=== PATIENT | female | born 1955 | race Caucasian/White ===

== ENCOUNTER 2018-02-21 19:05 | Emergency (ER) | payer BC ==
--- NOTE | 2018-02-21 19:58 | ED ---
Bite Injury/Animal - HPI Summary HPI Summary: Patient complains of redness, swelling, pain to right hand after Bite at 3 AM this morning. Patient started clindamycin at noon today, states redness and pain is increasing. Denies fever, CP, SOB, N/V. No anti-coag. Patient states cat up-to-date on vaccinations. - History of Current Complaint Chief Complaint: EDAnimalBite Stated Complaint: ANIMAL BITE Time Seen by Provider: 02/21/18 19:15 Hx Obtained From: Patient Onset of Injury: Happened hours ago Type of Bite: Animal Has Animal Been Immunized?: Yes Severity Initially: Mild Severity Currently: Mild Pain Intensity: 2 Pain Scale Used: 0-10 Numeric Character: Puncture Associated Signs And Symptoms: Positive: Erythema, Swelling. Negative: Limited ROM - Allergies/Home Medications Allergies/Adverse Reactions: Allergies Allergy/AdvReac Type Severity Reaction Status Date / Time Penicillins Allergy Rash Verified 02/21/18 19:09 Home Medications: Home Medications Clindamycin Cap(NF) 150 mg PO TID 02/21/18 [History Confirmed 02/21/18] PMH/Surg Hx/FS Hx/Imm Hx Endocrine/Hematology History: Denies: Hx Anticoagulant Therapy History: Denies: Hx Dialysis Neurological History: Denies: Hx CVA - Cancer History Hx Chemotherapy: No Hx Radiation Therapy: No - Immunization History Date of Tetanus Vaccine: with in 5 years ([employer]) Infectious Disease History: No Infectious Disease History: Denies: Traveled Outside the [place] in Last 30 Days - Social History Alcohol Use: Occasionally Substance Use Type: Reports: None Smoking Status (MU): Never Smoked Tobacco Review of Systems Constitutional: Negative Eyes: Negative ENT: Negative Cardiovascular: Negative Respiratory: Negative Gastrointestinal: Negative Genitourinary: Negative Musculoskeletal: Negative Skin: Other Neurological: Negative Psychological: Normal All Other Systems Reviewed And Are Negative: Yes Physical Exam - Summary Physical Exam Summary: 3 areas of scabbing indicating broken skin on dorsal surface of right hand. Redness to back of right hand, with faint red lines progressing proximally on right wrist. No indication of bite wounds to volar surface or flexor surface of right hand or wrist or forearm. EMS intact distally. Mild swelling. Triage Information Reviewed: Yes Vital Signs On Initial Exam: Initial Vitals Temp Pulse Resp BP Pulse Ox 98.1 F 100 16 155/96 96 02/21/18 19:07 02/21/18 19:07 02/21/18 19:07 02/21/18 19:07 02/21/18 19:07 Vital Signs Reviewed: Yes Appearance: Positive: Well-Appearing Skin: Positive: Warm Head/Face: Positive: Normal Head/Face Inspection Eyes: Positive: Normal Neck: Positive: Supple Respiratory/Lung Sounds: Positive: Clear to Auscultation Cardiovascular: Positive: Normal Abdomen Description: Positive: Nontender Musculoskeletal: Positive: Normal Neurological: Positive: Normal Psychiatric: Positive: Normal AVPU Assessment: Alert - Leonides Coma Scale Best Eye Response: 4 - Spontaneous Best Motor Response: 6 - Obeys Commands Best Verbal Response: 5 - Oriented Coma Scale Total: 15 Diagnostics - Vital Signs Vital Signs Temp Pulse Resp BP Pulse Ox 02/21/18 19:07 98.1 F 100 16 155/96 96 - Laboratory Lab Statement: Any lab studies that have been ordered have been reviewed, and results considered in the medical decision making process. Bite Injury Course/Dx - Course Course Of Treatment: Patient complains of redness, swelling, pain to right hand after Bite at 3 AM this morning. Patient started clindamycin at noon today, states redness and pain is increasing. Denies fever, CP, SOB, N/V. No anti- coag. Patient states cat up-to-date on vaccinations. PE: 3 areas of scabbing indicating broken skin on dorsal surface of right hand. Redness to back of right hand, with faint red lines progressing proximally on right wrist. No indication of bite wounds to volar surface or flexor surface of right hand or wrist or forearm. EMS intact distally. Mild swelling. Patient reassured that antibiotics would address redness and swelling within a couple days. Advised patient to return if symptoms worsen passed day 3 of antibiotics.. - Diagnoses Provider Diagnosis: Cat bite of hand Discharge - Sign-Out/Discharge Documenting (check all that apply): Patient Departure - Discharge Plan Condition: Stable Disposition: HOME Patient Education Materials: Animal Bite (ED) Referrals: Issa Roberts MD [Primary Care Provider] - Additional Instructions: Keep taking antibiotics as directed. Return to the ED for any new or worsening symptoms - Billing Disposition and Condition Condition: STABLE Disposition: Home
[2018-02-21 20:19] VITALS: BP 127/83
== END 2018-02-21 20:17 | disposition home or self-care (01) ==
LOC: ED 19:05
DX: S61.451A Open bite of right hand, initial encounter (principal); W55.01XA Bitten by cat, initial encounter; Y92.9 Unspecified place or not applicable
CPT/HCPCS: 99281

== ENCOUNTER 2022-01-08 07:30 | Inpatient (IN) ==
[~2022-01-08 07:30] MED LIST: Buffered Lidocaine 1% SYRIN 1 ml INTRADERM ONE; Lactated Ringers 1000 ml BAG 1,000 ML IV SCH
[2022-01-08] MEDS ORDERED: Prochlorperazine 5 mg/ml 2 ml VIAL (10 mg) IV PRN (08:06)
[2022-01-08] MEDS ORDERED: HYDROmorphone 1 MG/1 ML SYRINGE IV PRN (08:06)
[2022-01-08] MEDS ORDERED: Naloxone 0.4 mg VIAL 0.4 mg/ml 1 ml VIAL IV PRN (08:06)
[2022-01-08] MEDS ORDERED: ceFAZolin 2 GM in NS PREMIX 2 GM/100 ML BAG IVPB ONE (09:12)
[2022-01-08] MEDS ORDERED: Midazolam 2 mg/2 ml VIAL 1 mg/ml 2 ml VIAL (2 mg) ONE (10:46)
[2022-01-08] MEDS ORDERED: fentaNYL 100 mcg/2 ml 50 MCG/ML VIAL ONE (11:44)
[2022-01-08] MEDS ORDERED: Phenylephrine IV 10 MG/ML 1 ml VIAL ONE (11:53)
[2022-01-08] MEDS ORDERED: Magnesium Hydroxide LIQ 30 ML UDC PO PRN (12:53)
[2022-01-08] MEDS ORDERED: Morphine 2 MG/ML SYRINGE IV PRN (12:53)
[2022-01-08] MEDS ORDERED: Ondansetron 4 mg VIAL 2 MG/ML 2 ml VIAL IV PRN (12:53)
[2022-01-08] MEDS ORDERED: Ondansetron ODT 4 mg TAB 4 MG TAB PO PRN (12:53)
[2022-01-08] MEDS ORDERED: Lactulose 30 ml UDC PO PRN (12:53)
[2022-01-08] MEDS ORDERED: Lactated Ringers 1000 ml BAG 1,000 ML IV SCH (13:00)
[2022-01-08] MEDS: Clindamycin 600 MG/D5W BAG 600 MG/50 ML BAG IV SCH (20:32)
[2022-01-08] MEDS: Magnesium Hydroxide LIQ 30 ML UDC PO SCH (20:33)
[2022-01-09] MEDS: Clindamycin 600 MG/D5W BAG 600 MG/50 ML BAG IV SCH ×2 (05:08→11:48)
[2022-01-09 07:32] LABS: Hematocrit 32 % (35-47); Hemoglobin 11.2 g/dL (12.0-16.0); Mean Platelet Volume 7.6 fL (7.4-10.4); Platelet Count 225 10^3/uL (150-450)
[2022-01-09 08:19] LABS: Potassium 3.8 mmol/L (3.5-5.0); eGFR CKD-EPI 54.3 (>60)
[2022-01-09] MEDS: Magnesium Hydroxide LIQ 30 ML UDC PO SCH (08:33)
[2022-01-09] MEDS ORDERED: Vitamin THERAPEUTIC TAB PO SCH (09:00)
[2022-01-09 11:35] VITALS: BP 94/62
== END 2022-01-09 13:45 | disposition home or self-care (01) | DRG 301 ==
LOC: AA 08:28 → SSU 15:45
PROVIDERS: ADMIT Orthopaedic Surgery Adult Reconstructive Orthopaedic Surgery; ATTEND Orthopaedic Surgery Adult Reconstructive Orthopaedic Surgery

== ENCOUNTER 2022-04-21 01:45 | Observation (INO) ==
[2022-04-21] MEDS ORDERED: Ondansetron 4 mg VIAL 2 MG/ML 2 ml VIAL IV ONE (04:51)
[2022-04-21] MEDS ORDERED: NS 0.9% 1000 ml BAG 1,000 ML IV ONE (04:51)
[2022-04-21 05:19] LABS: Hematocrit 40 % (35-47); Hemoglobin 13.3 g/dL (12.0-16.0); Mean Corpuscular HGB Conc 34 g/dL (31-36); Mean Corpuscular Hemoglobin 30 pg (27-31); Mean Corpuscular Volume 90 fL (80-97); Mean Platelet Volume 7.9 fL (7.4-10.4); Platelet Count 276 10^3/uL (150-450); Red Blood Count 4.39 10^6 /uL (3.70-4.87); Red Cell Distribution Width 14 % (10-15); White Blood Count 25.5 10^3/uL (3.5-10.8)
[2022-04-21 05:26] LABS: INR 1.14 (0.89-1.11)
[2022-04-21 05:29] LABS: Urine Appearance Cloudy; Urine Bilirubin Negative (Negative); Urine Blood 1+ (Negative); Urine Color Amber; Urine Glucose Negative (Negative); Urine Ketones 2+ (Negative); Urine Nitrite Negative (Negative); Urine Protein 2+(100 mg/dL) (Negative); Urine Specific Gravity 1.026 (1.002-1.030); Urine Urobilinogen Negative (Negative)
[2022-04-21 05:30] LABS: Urine Bacteria Absent (Absent); Urine Red Blood Cell 2+(6-10/hpf) (Absent); Urine Squamous Epithelial Cell Present (Absent); Urine White Blood Cell 1+(6-10/hpf) (Absent)
[2022-04-21 05:49] LABS: Albumin 4.1 g/dL (3.2-5.2); Albumin/Globulin Ratio 1.4 (1-3); C Reactive Protein 355.55 mg/L (<8.01); Calcium 9.3 mg/dL (8.6-10.3); Potassium 3.1 mmol/L (3.5-5.0); Total Bilirubin 1.2 mg/dL (0.2-1.0); Total Protein 7.1 g/dL (6.4-8.9); eGFR CKD-EPI 58.3 (>60)
[2022-04-21 05:52] LABS: ABS Basophils 0.1 10^3/ul (0-0.2); ABS Lymphocytes 0.6 10^3/ul (1.0-4.8); ABS Monocytes 1.6 10^3/ul (0-0.8); ABS Neutrophils 23.2 10^3/ul (1.5-7.7); Eosinophil % 0.1 %; Lymphocyte % 2.2 %
[2022-04-21] MEDS ORDERED: Iodixanol (CONTRAST) 320 MG/ML 100 ML SDV IV ONE (07:03)
[2022-04-21] MEDS ORDERED: Ciprofloxacin 400mg IVPREMIX 400 MG/200 ML BAG IVPB ONE (07:11)
[2022-04-21] MEDS ORDERED: metroNIDAZOLE IV 500 MG/100ML 500 MG/100 ML BAG IVPB ONE (07:13)
[2022-04-21] MEDS ORDERED: Morphine 4 MG/ML VIAL (1 ml) IV ONE (10:02)
[2022-04-21] MEDS ORDERED: Lactated Ringers 1000 ml BAG 1,000 ML IV ONE (14:14)
[2022-04-21] MEDS ORDERED: oxyCODONE/Acetamin 5/325 mg TAB PO PRN (14:26)
[2022-04-21] MEDS ORDERED: Ondansetron 4 mg VIAL 2 MG/ML 2 ml VIAL IV PRN ×2 (14:26→15:09)
[2022-04-21] MEDS ORDERED: HYDROmorphone 0.5 MG/0.5 ML SYRINGE IV SLOW PU PRN (14:26)
[2022-04-21] MEDS ORDERED: Clindamycin 900 MG/D5W BAG 900 MG/50 ML BAG IVPB ONE (14:39)
[2022-04-21] MEDS ORDERED: Succinylcholine 200 mg VIAL 20 mg/ml 10 ml VIAL (200 mg) ONE ×2 (14:43→14:44)
[2022-04-21] MEDS ORDERED: Propofol 10 MG/ML 20 ML BTL ONE (14:44)
[2022-04-21] MEDS ORDERED: Dexamethasone IV 4 MG/ML VIAL 1 ml VIAL ONE (14:44)
[2022-04-21] MEDS ORDERED: Ondansetron 4 mg VIAL 2 MG/ML 2 ml VIAL ONE (14:44)
[2022-04-21] MEDS ORDERED: fentaNYL 250 mcg/5 ml 50 MCG/ML 5 ml VIAL (250 MCG) ONE (14:47)
[2022-04-21] MEDS ORDERED: Midazolam 2 mg/2 ml VIAL 1 mg/ml 2 ml VIAL (2 mg) ONE (14:47)
[2022-04-21] MEDS ORDERED: Gentamicin ADULT 250 MG in NS 0.9% 100 ml BAG 100 ML IVPB ONE (15:00)
[2022-04-21] MEDS ORDERED: Bupivacaine 0.25% EPI 200,000 30 ML SDV ONE (15:01)
[2022-04-21] MEDS ORDERED: Sodium Citrate/Citric Acid LIQ 15 ML UDC PO ONE (15:09)
[2022-04-21] MEDS ORDERED: Metoclopramide 5 MG/ML VIAL (10 mg) IV PRN (15:09)
[2022-04-21] MEDS ORDERED: HYDROcodone/ACETAMIN 5/325 mg TAB PO PRN (15:09)
[2022-04-21] MEDS ORDERED: Naloxone 0.4 mg VIAL 0.4 mg/ml 1 ml VIAL IV PRN (15:09)
[2022-04-21] MEDS ORDERED: Buffered Lidocaine 1% SYRIN 1 ml INTRADERM ONE (15:09)
[2022-04-21] MEDS ORDERED: fentaNYL 100 mcg/2 ml 50 MCG/ML VIAL IV PRN (15:09)
[2022-04-21] MEDS ORDERED: Rocuronium 50 mg VIAL 10 mg/ml 5 ml VIAL (50 mg) ONE (15:43)
[2022-04-21] MEDS ORDERED: Phenylephrine 40 mcg/mL 10mL (400mcg) SYRINGE ONE (15:58)
[2022-04-21] MEDS: Lactated Ringers 1000 ml BAG 1,000 ML IV SCH ×2 (18:26→19:47)
[2022-04-21] MEDS ORDERED: Acetaminophen IV 1 GM/100ML 1,000 MG/100 ML BAG IV PRN (18:47)
[2022-04-21] MEDS: CEFEPIME 2 GM in Dextrose 50 mL IV SCH (22:15)
[2022-04-22] MEDS: metroNIDAZOLE IV 500 MG/100ML 100 ML IVPB SCH ×2 (00:18→08:50)
[2022-04-22] MEDS ORDERED: Pantoprazole VIAL 40 MG VIAL IV ONE (04:04)
[2022-04-22] MEDS: Lactated Ringers 1000 ml BAG 1,000 ML IV SCH (04:52)
[2022-04-22 06:27] LABS: ABS Lymphocytes 0.4 10^3/ul (1.0-4.8); ABS Monocytes 0.8 10^3/ul (0-0.8); Hematocrit 34 % (35-47); Hemoglobin 11.1 g/dL (12.0-16.0); Lymphocyte % 2.5 %; Mean Corpuscular HGB Conc 33 g/dL (31-36); Mean Corpuscular Hemoglobin 30 pg (27-31); Mean Corpuscular Volume 90 fL (80-97); Platelet Count 219 10^3/uL (150-450); Red Blood Count 3.74 10^6 /uL (3.70-4.87); Red Cell Distribution Width 13 % (10-15); White Blood Count 14.2 10^3/uL (3.5-10.8)
[2022-04-22 07:08] LABS: Albumin 2.9 g/dL (3.2-5.2); Albumin/Globulin Ratio 1.3 (1-3); Globulin 2.2 g/dL (2-4); Potassium 3.5 mmol/L (3.5-5.0); Total Bilirubin 0.6 mg/dL (0.2-1.0); Total Protein 5.1 g/dL (6.4-8.9); eGFR CKD-EPI 77.1 (>60)
[2022-04-22] MEDS ORDERED: Calcium Gluconate 2 GM in NS 0.9% 100 ml BAG 100 ML IV ONE (08:03)
[2022-04-22] MEDS: CEFEPIME 2 GM in Dextrose 50 mL IV SCH (10:00)
[2022-04-22 12:29] VITALS: BP 90/50
== END 2022-04-22 15:09 | disposition home or self-care (01) ==
LOC: ED 01:45 → OR 15:00 → SSU 15:00 → ED 15:07
PROVIDERS: ADMIT Surgery; ATTEND Surgery